=== PATIENT | male | born 1950 | race Caucasian/White ===

== ENCOUNTER 2022-06-13 07:32 | Outpatient (CLI) | payer MEDICARE, BC, SELFPAY ==
[2022-06-13 15:35] LABS: Albumin* 4.3 g/dL (3.3-5.0); Chloride* 102 mmol/L (96-114); Sodium* 135 mmol/L (135-149)
[2022-06-13 15:36] LABS: Potassium* 3.6 mmol/L (3.6-5.1)
[2022-06-13 15:37] LABS: Cholesterol* 157 mg/dL (90-199)
[2022-06-13 15:38] LABS: Alanine Aminotransferase* 35 U/L (4-50); Alkaline Phosphatase* 70 U/L (40-150); Aspartate Amino Transferase* 40 U/L (12-35); Bilirubin Total* 0.7 mg/dL (0.1-1.5); Blood Urea Nitrogen* 12 mg/dL (7-30); Calcium* 9.4 mg/dL (8.4-10.6); Carbon Dioxide* 24 mmol/L (20-32); Creatinine* 0.7 mg/dL (0.5-1.5); Estimated Glomerular Filt Rate 97 ml/min; Glucose* 117 mg/dL (60-115); Total Protein* 6.8 g/dL (6.0-8.3); Triglycerides* 64 mg/dL (40-149)
[2022-06-13 15:39] LABS: HDL Cholesterol* 79 mg/dL (>=40); LDL Cholesterol Calculated 65 mg/dL (<100)
== END 2022-06-13 07:33 | disposition home or self-care (01) ==
PROVIDERS: PCP Internal Medicine; Visit Provider Internal Medicine
DX: Z00.00 Encounter for general adult medical examination without abnormal findings (principal); E78.5 Hyperlipidemia, unspecified; N40.0 Benign prostatic hyperplasia without lower urinary tract symptoms; Z12.5 Encounter for screening for malignant neoplasm of prostate
CPT/HCPCS: 80053; 80061; 84153

== ENCOUNTER 2023-12-22 15:47 | Outpatient (CLI) | payer MEDICARE, BC, SELFPAY ==
--- NOTE | 2023-12-22 15:30 | XR_ITS ---
Patient: [facility] Facility:?[facility] Patient ID:?[id number] Site Patient ID:?[id number]. Site :?1950 Study:?XRay-Extremity Left KNEE 3 VIEWS-12/22/2023 4:12:31 PM Ordering Physician:MALI Final Report: INDICATION: Left knee swelling. TECHNIQUE: Three views of the left knee. FINDINGS: Soft tissue swelling around the left knee. Large knee joint effusion. TKA appears intact. No acute fracture. Multiple loose bodies behind the knee. Dictated by Kuldip Rashid MD @ 12/26/2023 8:24:32 AM Signed by:?Kuldip Rashid MD @12/26/2023 8:24:32 AM (Electronic Signature)
--- NOTE | 2023-12-22 16:00 | US_ITS ---
Patient: LO LOUIS Facility:?[facility] Patient ID:?[id number] Site Patient ID:?[id number]. Site :?1950 Study:?US-Extremity Left LEV-12/22/2023 4:34:51 PM Ordering Physician:DENNIS CASTRO Final Report: INDICATION: Leg pain and swelling. TECHNIQUE: Ultrasound venous duplex lower left extremity. Compression venous exam was performed using alexandre-scale, color Doppler, and spectral Doppler analysis. COMPARISON: None. FINDINGS: Deep veins: Sonographic imaging demonstrates the left common femoral, deep femoral, superficial femoral, popliteal, posterior tibial and the contralateral right common femoral veins to be fully compressible with normal color Doppler blood flow. Superficial veins: Greater saphenous vein is fully compressible. Nonspecific fluid collection anterior to the knee. IMPRESSION: Normal left lower extremity venous ultrasound, no sign of deep venous thrombosis. An anterior fluid collection is adjacent to the knee. Dictated by Chico Abarca MD @ 12/22/2023 5:00:51 PM Signed by:?Chico Abarca MD @12/22/2023 5:00:51 PM (Electronic Signature)
== END 2023-12-22 15:48 | disposition home or self-care (01) ==
PROVIDERS: PCP Orthopaedic Surgery; Visit Provider Family Medicine
DX: M25.562 Pain in left knee (principal); M25.462 Effusion, left knee; I82.402 Acute embolism and thrombosis of unspecified deep veins of left lower extremity
CPT/HCPCS: 73562; 93971

== ENCOUNTER 2024-02-20 06:07 | Day surgery (SDC) | payer MEDICARE, BC, SELFPAY ==
[2024-02-20] VITALS (7 sets, daily range): BP systolic 130–158; BP diastolic 73–85; PULSE 70–82; RESP 16–18; TEMP 36.7; O2SAT 95–98; BMI 25.1
--- OUTSIDE RECORDS SUMMARY | 2024-02-20 06:10 | XMS_ITS ---
Author Name Unknown Organization [facility] Address [address] [place] [address] Care Team Providers Care Highway Construction Inspector Name Role Phone Unavailable Unavailable Unavailable Surgery Details Not on file Complications Check Surgery Details section. Procedure Estimated Blood Loss Check Surgery Details section. Procedure Findings Check Surgery Details section. Procedure Specimens Taken Check Surgery Details section.
--- OUTSIDE RECORDS SUMMARY | 2024-02-20 06:10 | XMS_ITS | Referral Summary ---
Author Name Unknown Organization [facility] Address [address] [place] [address] Care Team Providers Care Welder Apprentice Gas Name Role Phone Brook SmithB.S. Primary Care Provider Source Comments Patient records contain information from all sites at [facility]. For routine questions regarding patient records, call [phone] during business hours, M-F 8:00 AM - 5:00 PM Central Time. Record requests for emergency care only can be directed to [phone] at any time.[facility] Encounters Date Type Department Care Team Description 12/05/2023 Orders Only [facility] Brook Smith M.B.B.S. from Last 3 Months Allergies No known active allergies Medications Medication Sig Dispensed Refills Start Date End Date Status aspirin [address] tablet Take 81 mg by mouth daily. Active tadalafiL (CIALIS) 5 mg tablet Take 5 mg by mouth as needed. 03/26/2018 Active metFORMIN (GLUCOPHAGE) 500 mg tabletIndications:P reDiabetes Take 1 tablet (500 mg total) by mouth 2 (two) times a day with meals. 180 tablet 3 09/14/2023 09/13/2024 Active lisinopril-hydroCHL OROthiazide (PRINZIDE,ZESTORETI C) 10-12.5 mg per tablet Take 1 tablet by mouth daily. Active atorvastatin (LIPITOR) 80 mg tablet Take 1 tablet (80 mg total) by mouth daily. 90 tablet 3 09/14/2023 Active tamsulosin (FLOMAX) 0.4 mg 24 hr capsule Take 2 capsules (0.8 mg total) by mouth daily. 09/14/2023 Active Active Problems Problem Noted Date Diagnosed Date Depression Major Recurrent Mild 08/29/2022 Dependence Nicotine 08/29/2022 Appendectomy Status Post 09/07/2021 Herniorrhaphy Ventral Status Post 09/07/2021 Rotator Cuff Repair Shoulder Status Post 021 Acquired Absence Of Other Sp ecified Parts Of Digestive Tract 09/07/2021 Benign Prostatic Hyperplasia Without Obstruction 06/22/2021 Coronary Stent Status Post 06/22/2021 Loss Hearing Sensorineural Bilateral 06/22/2021 Presence Of Coronary Angiopl asty Implant And Graft Status Post 06/22/2021 Ischemic Heart Chronic Disease 06/30/2020 Atherosclerotic Heart Diseas e Of [place] Coronary Artery Without Angina Pectoris 10/10/2019 Hyperlipidemia 10/10/2019 Atherosclerotic Heart Diseas e Of [place] Coronary Artery Without Angina Pectoris 10/10/2019 Overview: 1 stent placed; negative stress tests since 2004. 1 stent placed; negative stress tests since Other Specific Arthropathies Not Elsewhere Classified Right Shoulder 10/10/2019 Presence Of Artificial Knee Joint Bilateral 06/2020 Overview: 2009 General Medical Examination Adult 02/23/2018 Overview: Colonoscopy 01/2018 diverticulosis, long colon, repeat in 10 years Dysfunction Erectile 03/06/2017 Tear Rotator Cuff Initial Left 12/18/2015 Unspecified Rotator Cuff Tea r Or Rupture Left Shoulder Not Specified As Traumatic 12/18/2015 Resolved Problems Problem Noted Date Diagnosed Date Resolved Date Hypertensive Heart Disease W ithout Heart Failure 06/22/2021 09/14/2023 Immunizations Name Administration Dates Next Due H1N1 All Forms 05/14/2016 HZV (ZOSTAVAX) 01/07/2011 HepA Adult 09/13/2010,09/07/2009 HepB Adult 08/19/2008,07/09/2008 Influenza (IM) Preservative Free 07/15/2008 Influenza TIV (IM) 07/08/2013, 2,07/07/2010,2004,08/08/2003 Influenza Whole 09/30/2004 Influenza high dose QV(65 ye ars or older) (PF) 05/29/2023,06/14/2021,05/31/2020 Influenza, Quadrivalent, Adj uvanted, Preservative Free 06/13/2022 Influenza, Seasonal, Injectable 07/08/20 13,06/28/2012,07/07/2010,2004,08/08/2003 PCV13 03/05/2015 PPSV23 03/20/2014,07/15/2008 RZV (SHINGRIX) 03/19/2018,01/09/2018 SARS-COV-2 (COVID-19) - MODERNA(Discontinued) 11/12/2020 Td Preservative Free (TENIVA C, DECAVAC) 03/04/2015,09/07/2009 Tdap 03/04/2015,07/15/2008 TyVi (inj) 09/07/2009 YF 03/13/2017 influenza high dose (65 year s or older) (PF) 07/02/2019,05/23/2018,07/02/2017,2016,08/02/2016,06/11/2015 influenza vaccine quad (FLUZONE/FLUARIX) (6 months and older)(PF) 07/16/2019,07/17/2018,07/02/2017 Social History Tobacco Use Types Packs/Day Years Used Date Smoking Tobacco: Former Smokeless Tobacco: Never Tobacco Cessation:Counseling Given: Not Answered Alcohol Use Standard Drinks/Week Comments Yes 14 (1 standard drink = 0.6 oz pu re alcohol) PHQ-2 Answer Date Recorded PHQ-2 Score 1 09/14/2023 Nutrition Answer Date Recorded Nutrition: EVOO Fat Source Unknown 11/25 Nutrition: Servings of Fruits/Vegetables per Day Not on file 11/25/2020 Dental Answer Date Recorded Dental: Regular Dentist Unknown 11/25/19 21 Sex and Gender Information Value Date Recorded Sex Assigned at Not on file Gender Identity Not on file Sexual Orientation Not on file Last Filed Vital Signs Vital Sign Reading Time Taken Comments Blood Pressure 142/85 09/14/2023 7:04 AM FURNITURE BUILDER Pulse 65 09/14/2023 7:04 AM FURNITURE BUILDER Temperature 36.3 ??C (97.4 ??F) 09/14/2023 7:04 AM CS T Respiratory Rate 16 09/14/2023 7:04 AM FURNITURE BUILDER Oxygen Saturation - - Inhaled Oxygen Concentration - - Weight 78.7 kg (173 lb 8 oz) 09/14/2023 7:04 AM FURNITURE BUILDER Height 175.6 cm (5' 9.13) 09/14/2023 7:04 AM CS T Body Mass Index 25.52 09/14/2023 7:04 AM FURNITURE BUILDER Plan of Treatment Not on file Procedures Procedure Name Priority Date/Time Associated Diagnosis Comments LIPID PANEL, S Routine 09/12/2023 8:06 AM FURNITURE BUILDER Hyperlipidemia BASIC METABOLIC PANEL, S/P Routine 09/12/2023 8:06 AM FURNITURE BUILDER Monitoring For Therapeutic Drug Therapy from Last 3 Months or Most Recently Relevant to Health Maintenance Results * Lipid Panel (09/12/2023 8:06 AM FURNITURE BUILDER) Triglycerides 74 mg/dL 09/12/2023 8:29 AM FURNITURE BUILDER RDWG Comment: ----REFERENCE VALUE---- Normal: <150 mg/dL Borderline High: 150-199 mg/dL High: 200-499 mg/dL Very High: > or =500 mg/dL Cholesterol, Total 153 mg/dL 2022 8:29 AM FURNITURE BUILDER RDWG Comment: ----REFERENCE VALUE---- Desirable: < 200 mg/dL Borderline High: 200 - 239 mg/dL High: > or = 240 mg/dL Cholesterol, LDL, Calculated 61 mg/dL 09/12/2023 8:29 AM FURNITURE BUILDER RDWG Comment: ----REFERENCE VALUE---- Desirable: <100 mg/dL Above Desirable: 100-129 mg/dL Borderline High: 130-159 mg/dL High: 160-189 mg/dL Very High: >=190 mg/dL ----ADDITIONAL INFORMATION---- LDL cholesterol calculated using the Winn/NIH equation. Cholesterol, HDL 78 >=40 mg/dL 09/12/20 8:29 AM FURNITURE BUILDER RDWG Cholesterol, Non-HDL, Calculated 75 mg/dL 09/12/2023 8:29 AM FURNITURE BUILDER RDWG Comment: ----REFERENCE VALUE---- Desirable: <130 mg/dL Above Desirable: 130-159 mg/dL Borderline High: 160-189 mg/dL High: 190-219 mg/dL Very High: > or =220 mg/dL Fasting (8 HR or more) Yes 09/12/2023 8:06 AM FURNITURE BUILDER RDWG Blood (Blood, Venous) 09/12/2023 8:06 AM FURNITURE BUILDER 09/12/2023 8:06 AM FURNITURE BUILDER Brook Andrews LAB BLOOD ADD- ON [facility] [address] [place] [address], [facility] R[facility] [place] [address] [place] [address] * Basic Metabolic Panel (09/12/2023 8:06 AM FURNITURE BUILDER) Potassium, P 4.2 3.6 - 5.2 mmol/L 09/12/2023 8:29 AM FURNITURE BUILDER RDWG Sodium, P 140 135 - 145 mmol/L 09/12/2023 8:29 AM FURNITURE BUILDER RDWG Chloride, P 102 98 - 107 mmol/L 09/12/2023 8:29 AM FURNITURE BUILDER RDWG Bicarbonate, P 26 22 - 29 mmol/L 09/12/2023 8:29 AM FURNITURE BUILDER RDWG Anion Gap, P 12 7 - 15 09/12/2023 8:29 AM FURNITURE BUILDER RDWG BUN (Blood Urea Nitrogen), P 14 8 - 24 mg/dL 09/12/2023 8:29 AM FURNITURE BUILDER RDWG Creatinine 0.85 0.74 - 1.35 mg/dL 09/12/2023 8:29 AM FURNITURE BUILDER RDWG Estimated GFR (eGFR) >90 >=60 mL/min/BSA 09/12/2023 8:29 AM FURNITURE BUILDER RDWG Comment: Estimated GFR calculated using the 2020 CKD_EPI creatinine equation. Calcium, Total, P 9.6 8.8 - 10.2 mg/dL 09/12/2023 8:29 AM FURNITURE BUILDER RDWG Glucose, P 98 70 - 140 mg/dL 09/12/2023 8:29 AM FURNITURE BUILDER RDWG Blood (Blood, Venous) 09/12/2023 8:06 AM FURNITURE BUILDER 09/12/2023 8:06 AM FURNITURE BUILDER Brook GipsonSDre LAB BLOOD ADD- ON [facility] [address] [place] [id number], [facility] RDWG [facility] [place] [address] [place] [phone] from Last 3 Months or Most Recently Relevant to Health Maintenance Care Teams Welder Apprentice Gas Relationship Specialty Start Date End Date Brook Smith M.B.B.S. [address] [place] [phone] PCP - General Internal Medicine 09/03/21
--- OUTSIDE RECORDS SUMMARY | 2024-02-20 06:10 | XMS_ITS | Referral Summary ---
Author Name Unknown Organization [facility] Address [address] [place] [id number] Care Team Providers Care Lieutenant Ballistics Name Role Phone Bebeto Delgado MD Primary Care Provider [phone] Allergies No known active allergies Medications Medication Sig Dispensed Refills Start Date End Date Status levofloxacin (LEVAQUIN) 500 MG tablet Take 500 mg by mouth daily 10/01/2019 Active aspirin 81 MG EC tablet Take 81 mg by mouth daily 03/20/2014 Active lisinopril-hydrochloro thiazide (PRINZIDE/ZESTORETIC) 10-12.5 MG tablet Take 1 tablet by mouth daily 03/26/2018 Active atorvastatin (LIPITOR) 80 MG tablet Take 80 mg by mouth daily 07/16/2019 Active tamsulosin (FLOMAX) 0.4 MG capsule Take 0.4 mg by mouth daily 07/16/2019 Active tadalafil (CIALIS) 5 MG tablet Take 5 mg by mouth as needed 03/26/2018 Active Active Problems Problem Noted Date Diagnosed Date Coronary atherosclerosis 10/10/2019 HTN (hypertension) 10/10/2019 Hyperlipidemia 10/10/2019 Myocardial infarction 10/10/2019 Overview: 2004. 1 stent placed; negative stress tests since Rotator cuff arthropathy of both shoulders 10/10 History of total bilateral knee replacement 06/2020 Overview: 2008 Male erectile dysfunction, unspecified 7 Immunizations Name Administration Dates Next Due Hepatitis A (ADULT 19+) 09/13/2010,09/07/2009 Hepatitis B, Adult 08/19/2008,07/09/2008 Influenza (H1N1) 05/14/2016 Influenza (High Dose) 3 kit nt vaccine 07/02/2019,05/23/2018,07/02/2017,2016,08/02/2016,06/11/2015 Influenza (IIV3) PF 07/08/2013, 2,07/07/2010,2004,08/08/2003 Influenza, Whole Virus 09/30/2004 Influenza, seasonal, injectable, PF 07/15/2008 Pneumo Conj 13-V (2010&after) 03/05/2015 Pneumococcal 23 valent 03/20/2014,07/15/2008 TD,PF 7+ (Tenivac) 09/07/2009 TDAP Vaccine (Boostrix) 03/04/2015,07/15/2008 Typhoid IM 09/07/2009 Yellow Fever 03/13/2017,03/13/2017 Zoster recombinant adjuvante d (SHINGRIX) 03/19/2018,01/09/2018 Zoster vaccine, live 01/07/2011 Social History Tobacco Use Types Packs/Day Years Used Date Smoking Tobacco: Former Smokeless Tobacco: Never Alcohol Use Standard Drinks/Week Comments Yes 0 (1 standard drink = 0.6 oz pur e alcohol) occasionally PHQ-2 Answer Date Recorded PHQ-2 Score 2 10/09/2019 Sex and Gender Information Value Date Recorded Sex Assigned at Not on file Gender Identity Not on file Sexual Orientation Not on file Last Filed Vital Signs Vital Sign Reading Time Taken Comments Blood Pressure 167/99 10/09/2019 4:43 PM SPINNER OPEN END Pulse 76 10/09/2019 4:39 PM SPINNER OPEN END Temperature 36.7 ??C (98.1 ??F) 10/09/2019 4:39 PM CS T Respiratory Rate 16 10/09/2019 4:39 PM SPINNER OPEN END Oxygen Saturation 99% 10/09/2019 4:39 PM SPINNER OPEN END Inhaled Oxygen Concentration - - Weight 82.3 kg (181 lb 6.4 oz) 10/09/2019 4:39 P M SPINNER OPEN END Height 176 cm (5' 9.29) 10/09/2019 4:39 PM SPINNER OPEN END Body Mass Index 26.56 10/09/2019 4:39 PM SPINNER OPEN END Plan of Treatment Not on file Care Teams Lieutenant Ballistics Relationship Specialty Start Date End Date Bebeto Delgado MD [address] [place], [place] [phone] PCP - General Family Practice 09/30/19
--- OUTSIDE RECORDS SUMMARY | 2024-02-20 06:10 | XMS_ITS | Clinical Summary ---
Author Name Unknown Organization [facility] Address [place], [place] [address] Care Team Providers Care Customer Orders Clerk Name Role Phone Melissa Causey MD Primary Care Provider [phone] Allergies No known active allergies Medications Medication Sig Dispensed Refills Start Date End Date Status aspirin enteric coated 81 mg tablet Take 1 tablet by mouth once daily with a meal. 0 03/20/2014 Active tadalafiL (Cialis) 5 mg tabletIndications:Ere ctile dysfunction, unspecified erectile dysfunction type Take 1 Tablet (5 mg) by mouth once daily. 30 Tablet 3 08/29/2022 Active metFORMIN (GLUCOPHAGE) 850 mg tabletIndications:Pre diabetes Take 1 Tablet (850 mg) by mouth two times daily with meals. 180 Tablet 3 02/24/2023 Active atorvastatin (LIPITOR) 80 mg tabletIndications:Mix ed hyperlipidemia TAKE 1 TABLET (80 MG) BY MOUTH ONCE DAILY. PUT ON FILE - 90 Tablet 09/06/2023 Active tamsulosin (FLOMAX) 0.4 mg capsuleIndications:BP H without urinary obstruction TAKE 2 CAPSULES (0.8 MG) BY MOUTH ONCE DAILY AFTER A MEAL. 180 Capsule 09/06/2023 Active buPROPion (WELLBUTRIN XL) 300 mg Extended-Release tabletIndications:Oth er tobacco product nicotine dependence, uncomplicated TAKE ONE TABLET BY MOUTH EVERY DAY 30 Tablet 09/07/2023 Active lisinopril-hydrochlor othiazide (10-12.5 mg) tablet (PRINZIDE; ZESTORETIC)Indication s:HTN (hypertension) TAKE 1 TABLET BY MOUTH ONCE DAILY. 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 09/07/2021 Sensorineural hearing loss (SNHL) of both ears 0 06/22/2021 Presence of coronary angioplasty implant and gra ft 06/22/2021 Benign prostatic hyperplasia without urinary obs truction 06/22/2021 Rotator cuff arthropathy of both shoulders 10/10 History of total bilateral knee replacement 06/2020 Overview: 2008 Routine adult health maintenance 02/23/2018 Overview: Colonoscopy 01/2018 diverticulosis, long colon, repeat in 10 years Male erectile dysfunction, unspecified 7 Tear of left rotator cuff 12/18/2015 HTN (hypertension) Hyperlipidemia Coronary artery disease Myocardial infarction Overview: 1 stent placed; negative stress tests since Encounters Date Type Department Care Team Description 01/25/2024 Refill [facility] [address] [place] [address] Melissa Causey MD Refill Request (Lisinopril-hydrochlorot hiazide 10 Mg-12.5 Mg) 12/26/2023 Refill [facility] [address] [place] [address] Melissa Causey MD Refill Request (Lisinopril-hydrochlorot hiazide 10 Mg-12.5 Mg) from Last 3 Months Immunizations Name Administration Dates Next Due COVID-19 vaccine (Moderna 100mcg/0.5mL) TRENT LEVIN 11/12/2020 Hepatitis A (Adult) 09/13/2010,09/07/2009 Hepatitis B (Adult) 08/19/2008,07/09/2008 Influenza A (H1N1), Inactivated 05/14/2016 Influenza, High-dose Inactivated 019,05/23/2018,07/02/2017,2016,08/02/2016,06/12/2015 Influenza, High-dose Quadriv alent Inactivated 06/14/2021,05/31/2020 Influenza, IIV3 (Age 6-35 mos) 07/15/2008 Influenza, IIV3 (Age >=3 years) 07/08/20 13,06/28/2012,07/07/2010,2004,08/08/2003 Influenza, IIV4 07/16/2019,07/17/2018,07/02/2017 Influenza, Inactivated AIIV4 (Age 65+ Years) Preserv Free 06/13/2022 Influenza, Whole Virus 09/30/2004 Pneumococcal Poly,23-Valent (Pneumovax) 03/20/2014,07/15/2008 Pneumococcal conj 13-Valent (Prevnar 13) 03/05/2015 Td, Preservative Free (age > = 7 Years) 03/04/2015,09/07/2009 Tdap 03/04/2015,07/15/2008 Typhoid (injectable) 09/07/2009 Yellow Fever 03/13/2017 Zoster (Shingrix-RZV, recombinant) 03/19/2018, Zoster (Zostavax-ZVL, live) 01/07/2011 Family History Medical History Relation Name Comments Heart Disease Father Hyperlipidemia Father Stroke Mother at 86 Cancer-colon No Family History Cancer-prostate No Family History Relation Name Status Comments Father Mother Social History Tobacco Use Types Packs/Day Years Used Date Smoking Tobacco: Former Cigarettes 1 30 0 03/20/1970 - 03/20/2000 Smokeless Tobacco: Never Tobacco Cessation:Counseling Given: Yes Alcohol Use Standard Drinks/Week Comments Yes 0 (1 standard drink = 0.6 oz pur e alcohol) 1-2 drinks per day PHQ-2 Answer Date Recorded PHQ-2 TOTAL SCORE 3 08/29/2022 Social Connections Answer Date Recorded Frequency of Communication with Friends and Fami ly 0 06/26/2023 Financial Resource Strain Answer Date R ecorded Difficulty of Paying Living Expenses 3 06/26/2023 Difficulty of Paying Living Expenses Not on file 06/26/2023 Food Insecurity Answer Date Recorded Worried About Running Out of Food in the Last Ye ar 1 06/26/2023 Transportation Needs Answer Date Record ed Lack of Transportation (Medical) 1 06/26/2023 Housing Stability Answer Date Recorded Unable to Pay for Housing in the Last Year 1 06/26/2023 Sex and Gender Information Value Date Recorded Sex Assigned at Not on file Gender Identity Not on file Sexual Orientation Not on file Obstetrics History Last Filed Vital Signs Vital Sign Reading Time Taken Comments Blood Pressure 137/81 08/29/2022 8:59 AM STUCCO MASON Pulse 57 08/29/2022 8:59 AM STUCCO MASON Temperature 36.6 ??C (97.9 ??F) 05/08/2019 9:08 AM CD T Respiratory Rate 18 02/02/2016 9:04 AM CDT Oxygen Saturation 97% 08/29/2022 8:59 AM STUCCO MASON Inhaled Oxygen Concentration - - Weight 80.3 kg (177 lb) 08/29/2022 8:59 AM STUCCO MASON Height 175.5 cm (5' 9.09) 08/29/2022 8:59 AM CS T Body Mass Index 26.07 08/29/2022 8:59 AM STUCCO MASON Plan of Treatment Health Maintenance Due Date Last Done Comments COVID-19 vaccine series ( season) 2023 02/20/2023, 06/13/2022, 01/11/2022, Additional history exists BMI (ht and wt on same day) for age 18+ 08/29/2023 08/29/2022, 03/26/2018, 01/22/2018, Additional history exists Depression screening for age 12+ 08/29/2023 08/29/2022, 03/26/2018, 03/26/2018, Additional history exists Medicare Wellness for age 65+ 08/30/2023, 03/26/2018, 03/06/2017, Additional history exists Influenza for age 65+ 06/02/2024 06/13/2022 , 06/14/2021, 05/31/2020, Additional history exists Tetanus booster 03/04/2025 03/04/2015, 11/2014, 09/07/2009, Additional history exists Colonoscopy through age 75 02/24/202802/23, 02/23/2018, 02/23/2018 Lipids for age 45-75 06/23/2028 06/23/2023, 03/15/2018, 03/02/2017, Additional history exists Tdap Completed 03/04/2015, 07/15/2008 Pneumococcal series for age 65+ Completed 03/05/2015, 03/20/2014, 07/15/2008 Zoster (shingles) series for age 50+ Completed 03/19/2018, 01/09/2018, 01/07/2011 Hepatitis C screening for ag e 18-79 Completed 03/27/2018 Medical Devices Implanted Type Area Corporate Travel Consultant Device Identifier Shelf Expiration Date Model / Serial / Lot Lens Iol 20.5 Tecnis - [id number] Implanted:Qty: 1 on 02/02/2016 by Michael Villarreal MD at [facility] Right: Eye [employer] 11/10/2020 [id number] / [id number] / Procedures Procedure Name Priority Date/Time Associated Diagnosis Comments LIPID PANEL W REFLEX MEASURED LDL Routine 06/23/2023 7:03 AM CDT Hyperlipidemia, unspecified hyperlipidemia type ANTI HCV Routine 03/27/2018 12:46 PM CDT Need for hepatitis C screening test COLONOSCOPY 02/23/2018 7:55 AM CDT from Last 3 Months or Most Recently Relevant to Health Maintenance Results * LIPID PANEL W REFLEX MEASURED LDL (06/23/2023 7:03 AM CDT) CHOLESTEROL,TOTAL 149 100 - 199 mg/dL 06/23/2023 1:54 PM CDT [facility] [employer] LABORATORY-[facility] TRAL LABORATORY Comment: Cholesterol, Total Reference Ranges Desirable <200 mg/dL Borderline 200-239 mg/dL High >=240 mg/dL TRIGLYCERIDES 56 <150 mg/dL 06/23/2023 1:54 PM CDT [facility] [employer] LABORATORY-[facility] HDL CHOLESTEROL 73 >40 mg/dL 1:54 PM CDT [facility] [employer]-[facility] TRAL LAB[facility] NON-HDL CHOLESTEROL 76 <145 mg/dl 06/23/2023 1:54 PM CDT [facility] LAB[facility] TRAL LABORATORY CHOL/HDL RATIO 2.04 <4.50 06/23/2023 1:54 PM CDT [facility] [employer] LABORATORY-[facility] TRAL LABORATORY LDL CHOLESTEROL 65 <=130 mg/dL 06/23/2023 1:54 PM CDT [facility] TRAL LABORATORY VLDL CHOLESTEROL 11 <=30 mg/dL 06/23/2023 1:54 PM CDT [facility] TRA LABORAT[facility] PROVIDER ORDERED STATUS RANDOM 06/23/2023 1:54 PM CDT [facility] Blood BLOOD SPECIMEN / Unknown Venipuncture / Unknown 06/23/2023 7:03 AM CDT 06/23/2023 7:04 AM CDT Melissa Causey MD CHEMISTRY [facility] [address] [place] [address], [place] * ANTI HCV [00886.2] (03/27/2018 12:46 PM CDT) HEPATITIS C ANTIBODY Non-React maikel Non-React maikel 03/27/2018 5:21 PM CDT [facility] Comment:Antibodies to HCV no t detected; does not exclude the possibility of exposure to HCV. Blood BLOOD SPECIMEN / Unknown Venipuncture / Unknown 03/27/2018 12:46 PM CDT 03/27/2018 12:46 PM CDT Nate Sosa MD SEND OUTS Performing Organization Address City/[facility]/ZIP Co de Phone Number [facility] [address] [place] [address], [place] * COLONOSCOPY (02/23/2018 7:55 AM CDT) 02/23/2018 7:55 AM CDT Narrative Transcriptions Malik Alegria MD - 02/23/2018 9:21 AM CDT Patient Name: Kunal Dubois Procedure Date: 02/23/2018 Gender: Male Date of : 1950 Admit Type: Outpatient Procedure: Colonoscopy Proceduralist: Malik Alegria MD , Lauren Castro (Nurse) Referring MD: Nate Sosa Indications/Pre-Op Diagnosis: Screening for colorectal malignant neoplasm, Last colonoscopy: January 2008 Medications: Fentanyl 150 micrograms IV, Midazolam 2 mgIV, The level of sedation administered wasmoderate Procedure Description: The patient had risks, benefits and alternatives explained to andgave informed consent. The patient had a stable cardiopulmonary status and judged an adequate candidate for conscious sedation. The [id number]-[id number] was passed through the anus and advanced tothe cecum, identified by appendiceal orifice and ileocecal valve. The colonoscopy was performed without difficulty. The patient toleratedthe procedure well. The quality of the bowel preparation was good. The ileocecal valve, appendiceal orifice, and rectum were photographed. Complications: No immediate complications. Estimated Blood Loss & Specimen: Estimated blood loss: none. Specimen collected - None Findings: The perianal and digital rectal examinations were normal. The colon (entire examined portion) was moderately redundant. Multiple small and large-mouthed diverticula were found in thesigmoid colon and descending colon. The exam was otherwise without abnormality on direct and retroflexion views. Impressions/Post-Op Diagnosis: - Redundant colon. - Diverticulosis in the sigmoid colon and in the descending colon. - The examination was otherwise normal on direct and retroflexionviews. - No specimens collected. Recommendation: - Patient has a contact number available for emergencies. The signsand symptoms of potential delayed complications were discussed with the patient. Return to normal activities tomorrow. Written discharge instructions were provided to the patient. - Resume previous diet. - Continue present medications. - Repeat colonoscopy in 10 years for screening purposes. Moderate Sedation: Moderate (conscious) sedation was administered by the endoscopy nurse and supervised by the endoscopist. The following parameters were monitored: oxygen saturation, heart rate, respiratory rate, blood pressure, adequacy of pulmonary ventilation and reponse to care. [facility] and nursing notes for moderate sedation details. Total physician intraservice time was 39 minutes. Malik Alegria MD 02/23/2018 9:21:29 AM This report has been signed electronically. Note Initiated On: 02/23/2018 7:55 AM Procedure Code(s): --- Professional --- 41615, Colonoscopy, flexible; diagnostic, including collection of specimen(s) bybrushing or washing, when performed (separateprocedure) Diagnosis Code(s): --- Professional --- Z12.11, Encounter for screening formalignant neoplasm of colon K57.30, Diverticulosis of large intestine without perforation or abscess withoutbleeding Q43.8, Other specified congenitalmalformations of intestine CPT copyright 2017 [employer]. All rights reserved. The codes documented in this report are preliminary and upon trencher driver reviewmay be revised to meet current compliance requirements. Scope In: 8:38:50 AM Scope Withdrawal Time 0 hours 8 minutes 12 seconds Scope Out: 9:17:00 AM Malik Alegria MD PROCEDURE ORD from Last 3 Months or Most Recently Relevant to Health Maintenance Advance Directives * Full Code (Latest Code Status on File) Date Activated Date Inactivated Comments 02/02/2016 6:46 AM 02/02/2016 12:26 PM * Full Code Date Activated Date Inactivated Comments 07/30/2015 6:30 AM 07/30/2015 10:32 AM Care Teams Customer Orders Clerk Relationship Specialty Start Date End Date Melissa Causey MD [address] [place] [address] PCP - General Family Practice 08/29/22
--- OUTSIDE RECORDS SUMMARY | 2024-02-20 06:10 | XMS_ITS | Clinical Summary ---
Author Name Unknown Organization [facility] Address [address] [place] [address] Care Team Providers Care Boring Machine Operator Production Name Role Phone Brook SmithSDre Primary Care Provider Source Comments Patient records contain information from all sites at [facility]. For routine questions regarding patient records, call [phone] during business hours, M-F 8:00 AM - 5:00 PM Central Time. Record requests for emergency care only can be directed to [phone] at any time.[facility] Allergies No known active allergies Medications Medication [...] Disease 06/30/2020 Atherosclerotic Heart Diseas e Of [place] Coronary Artery Without Angina Pectoris 10/10/2019 Hyperlipidemia 10/10/2019 Atherosclerotic Heart Diseas e Of [place] Coronary Artery Without Angina Pectoris 10/10/2019 Overview: [...] Disease W ithout Heart Failure 06/22/2021 09/14/2023 Encounters Date Type Department Care Team Description 12/05/2023 Orders Only [facility] PCP TH MNT Brook Smith M.B.B.S. from Last 3 Months Immunizations Name Administration Dates Next Due H1N1 [...] Comments Blood Pressure 142/85 09/14/2023 7:04 AM UX INTERACTION DESIGNER Pulse 65 09/14/2023 7:04 AM UX INTERACTION DESIGNER Temperature 36.3 ??C (97.4 ??F) 09/14/2023 7:04 AM CS T Respiratory Rate 16 09/14/2023 7:04 AM UX INTERACTION DESIGNER Oxygen Saturation - - Inhaled Oxygen Concentration - - Weight 78.7 kg (173 lb 8 oz) 09/14/2023 7:04 AM UX INTERACTION DESIGNER Height 175.6 cm (5' 9.13) 09/14/2023 7:04 AM CS T Body Mass Index 25.52 09/14/2023 7:04 AM UX INTERACTION DESIGNER Plan of Treatment Health Maintenance Due Date Last Done Comments CT Colonography 1950 Cologuard 1950 Depression Monitoring (PHQ-9) 1950 FIT 1950 Hepatitis C Screening 1950 Tobacco Cessation counseling 1950 Visit: Medicare Annual Wellness 1950 Hepatitis B Vaccines (3 of 3 - 19+ 3-dose series) 01/07/2009 08/19/2008, 07/09/2008 Fall Risk Screen (Annual) 10/02/2023 Office Visit for Blood Press ure Check / Re-check 12/14/2023 09/14/2023 COVID-19 Vaccine (2022-2 4 season) 2024 12/01/2023, 02/20/2023, 06/13/2022, Additional history exists Creatinine Level (Kidney Fun ction Test) 09/12/2024 09/12/2023, 06/23/2023, 09/07/2021, Additional history exists Fasting Glucose for Diabetes Screening 09/12/2024 09/12/2023, 06/23/2023, 09/07/2021, Additional history exists Potassium Level 09/12/2024 09/12/2023, 06/03, 09/07/2021, Additional history exists Sodium Level 09/12/2024 09/12/2023, 06/03, 09/07/2021, Additional history exists Visit: Annual, age 65+ (or Medicare and <65) 09/14/2024 09/14/2023 DTaP,Tdap,and Td Vaccines (5 - Td or Tdap) 03/04/2025 03/04/2015, 03/04/2015, 09/07/2009, Additional history exists Colonoscopy 03/06/2028 03/06/2018 (Perf ormed elsewhere) Colorectal Cancer Screening 03/06/2028 Lipid (Cholesterol) Screening 09/12/2028, 06/23/2023, 09/07/2021, Additional history exists Hepatitis A Vaccines Completed 09/13/2010, 09/07/20 09 Pneumococcal vaccine (65+ years) Completed 03/05/2015, 03/20/2014, 07/15/2008 Zoster Vaccines Completed 03/19/2018, 12/31, 01/07/2011 Abdominal Aortic Aneurysm (A AA) Screen Discontinued 03/16/2021 (Performed elsewhere) Influenza Vaccine Completed 05/29/2023, , 06/14/2021, Additional history exists Procedures Procedure Name Priority Date/Time Associated Diagnosis Comments LIPID PANEL, S Routine 09/12/2023 8:06 AM UX INTERACTION DESIGNER Hyperlipidemia BASIC METABOLIC PANEL, S/P Routine 09/12/2023 8:06 AM UX INTERACTION DESIGNER Monitoring For Therapeutic Drug Therapy from Last 3 Months or Most Recently Relevant to Health Maintenance Results * Lipid Panel (09/12/2023 8:06 AM UX INTERACTION DESIGNER) Triglycerides 74 mg/dL 09/12/2023 8:29 AM UX INTERACTION DESIGNER [facility] Comment: ----REFERENCE VALUE---- Normal: <150 mg/dL Borderline High: 150-199 mg/dL High: 200-499 mg/dL Very High: > or =500 mg/dL Cholesterol, Total 153 mg/dL 2022 8:29 AM UX INTERACTION DESIGNER [facility] Comment: ----REFERENCE VALUE---- Desirable: < 200 mg/dL Borderline High: 200 - 239 mg/dL High: > or = 240 mg/dL Cholesterol, LDL, Calculated 61 mg/dL 09/12/2023 8:29 AM UX INTERACTION DESIGNER [facility] Comment: ----REFERENCE VALUE---- Desirable: <100 mg/dL Above Desirable: 100-129 mg/dL Borderline High: 130-159 mg/dL High: 160-189 mg/dL Very High: >=190 mg/dL ----ADDITIONAL INFORMATION---- LDL cholesterol calculated using the Winn/NIH equation. Cholesterol, HDL 78 >=40 mg/dL 09/12/20 8:29 AM UX INTERACTION DESIGNER [facility] Cholesterol, Non-HDL, Calculated 75 mg/dL 09/12/2023 8:29 AM UX INTERACTION DESIGNER [facility] Comment: ----REFERENCE VALUE---- Desirable: <130 mg/dL Above Desirable: 130-159 mg/dL Borderline High: 160-189 mg/dL High: 190-219 mg/dL Very High: > or =220 mg/dL Fasting (8 HR or more) Yes 09/12/2023 8:06 AM UX INTERACTION DESIGNER [facility] Blood (Blood, Venous) 09/12/2023 8:06 AM UX INTERACTION DESIGNER 09/12/2023 8:06 AM UX INTERACTION DESIGNER Brook Andrews LAB BLOOD ADD- ON [facility] [address] [place] [address], [facility] [place] [address] [place] [address] * Basic Metabolic Panel (09/12/2023 8:06 AM UX INTERACTION DESIGNER) Potassium, P 4.2 3.6 - 5.2 mmol/L 09/12/2023 8:29 AM UX INTERACTION DESIGNER [facility] Sodium, P 140 135 - 145 mmol/L 09/12/2023 8:29 AM UX INTERACTION DESIGNER [facility] Chloride, P 102 98 - 107 mmol/L 09/12/2023 8:29 AM UX INTERACTION DESIGNER [facility] Bicarbonate, P 26 22 - 29 mmol/L 09/12/2023 8:29 AM UX INTERACTION DESIGNER [facility] Anion Gap, P 12 7 - 15 09/12/2023 8:29 AM UX INTERACTION DESIGNER [facility] BUN (Blood Urea Nitrogen), P 14 8 - 24 mg/dL 09/12/2023 8:29 AM UX INTERACTION DESIGNER [facility] Creatinine 0.85 0.74 - 1.35 mg/dL 09/12/2023 8:29 AM UX INTERACTION DESIGNER [facility] Estimated GFR (eGFR) >90 >=60 mL/min/BSA 09/12/2023 8:29 AM UX INTERACTION DESIGNER [facility] Comment: Estimated GFR calculated using the 2020 CKD_EPI creatinine equation. Calcium, Total, P 9.6 8.8 - 10.2 mg/dL 09/12/2023 8:29 AM UX INTERACTION DESIGNER [facility] Glucose, P 98 70 - 140 mg/dL 09/12/2023 8:29 AM UX INTERACTION DESIGNER [facility] Blood (Blood, Venous) 09/12/2023 8:06 AM UX INTERACTION DESIGNER 09/12/2023 8:06 AM UX INTERACTION DESIGNER Brook GipsonS. LAB BLOOD ADD- ON [facility] [address] [id number], [facility] [place] [address] [id number] from Last 3 Months or Most Recently Relevant to Health Maintenance Care Teams Boring Machine Operator Production Relationship Specialty Start Date End Date Brook Smith M.B.B.S. [address] [facility] [place] [id number] PCP - General Internal Medicine 09/03/21
--- OUTSIDE RECORDS SUMMARY | 2024-02-20 06:10 | XMS_ITS | Clinical Summary ---
Author Name Unknown Organization [facility] Address [address] [place] [address] Care Team Providers Care Shank Burnisher Name Role Phone Bebeto Delgado MD Primary Care Provider [phone] Allergies No known active allergies Medications Medication [...] d (SHINGRIX) 03/19/2018,01/09/2018 Zoster vaccine, live 01/07/2011 Family History Medical History Relation Comments Hypertension Father Dementia Mother Heart Disease Paternal Grandfather Cancer No family hx of Coronary Artery Disease No family hx of Diabetes No family hx of Relation Status Comments Father Mother Paternal Grandfather Paternal Grandmother Social History Tobacco Use Types Packs/Day Years [...] Comments Blood Pressure 167/99 10/09/2019 4:43 PM SENIOR INFORMATION SECURITY ARCHITECT Pulse 76 10/09/2019 4:39 PM SENIOR INFORMATION SECURITY ARCHITECT Temperature 36.7 ??C (98.1 ??F) 10/09/2019 4:39 PM CS T Respiratory Rate 16 10/09/2019 4:39 PM SENIOR INFORMATION SECURITY ARCHITECT Oxygen Saturation 99% 10/09/2019 4:39 PM SENIOR INFORMATION SECURITY ARCHITECT Inhaled Oxygen Concentration - - Weight 82.3 kg (181 lb 6.4 oz) 10/09/2019 4:39 P M SENIOR INFORMATION SECURITY ARCHITECT Height 176 cm (5' 9.29) 10/09/2019 4:39 PM SENIOR INFORMATION SECURITY ARCHITECT Body Mass Index 26.56 10/09/2019 4:39 PM SENIOR INFORMATION SECURITY ARCHITECT Plan of Treatment Not on file Care Teams Shank Burnisher Relationship Specialty Start Date End Date Bebeto Delgado MD [address] [facility] [address] [place] [address] PCP - General Family Practice 09/30/19
--- OUTSIDE RECORDS SUMMARY | 2024-02-20 06:10 | XMS_ITS | Encounter Summary ---
Author Name Unknown Organization [facility] Address [address] [place] [address] Care Team Providers Care House Visitor Name Role Phone Brook SmithB.S. Primary Care Provider Reason for Referral * Outpatient (Routine) - Authorized Specialty Diagnoses / Procedures Referred By Mariya savage Referred To Contact Brook Smith M.B.B.S. [address] [place] [phone] [facility] Region Referral ID Status Reason Start Date Expiration Date V isits Requested Visits Authorized [id number] Authorized 12/05/2023 06/05/2025 1 1 Scheduling Instructions Nurse AWV Do not schedule prior to due date to ensure insurance coverage Visit: Medicare Annual Wellness Never done. IER DRIVER * Outpatient (Routine) - Authorized Specialty Diagnoses / Procedures Referred By Mariya savage Referred To Contact [facility] Internal Medicine Brook Smith M.B.B.S. [address] [place] [phone] [facility] Region Referral ID Status Reason Start Date Expiration Date V isits Requested Visits Authorized [id number] Authorized 12/05/2023 06/05/2025 1 1 Scheduling Instructions Medicare annual provider visit/HCC gaps Do not schedule prior to due date to ensure insurance coverage Visit: Medicare Annual Wellness Never done. IER DRIVER Encounter Details Date Type Department Care Team (Late st Contact Info) Description 12/05/[address] [facility] [address] [place] [phone] Social History Tobacco Use Types Packs/Day Years Used Date Smoking Tobacco: Former Smokeless Tobacco: Never Alcohol Use Standard Drinks/Week Comments Yes 14 (1 standard drink = 0.6 oz pu re alcohol) PHQ-2 Answer Date Recorded PHQ-2 Score 1 09/14/2023 Nutrition Answer Date Recorded Nutrition: EVOO Fat Source Unknown 11/25 Nutrition: Servings of Fruits/Vegetables per Day Not on file 11/25/2020 Dental Answer Date Recorded Dental: Regular Dentist Unknown 11/25/19 Sex and Gender Information Value Date Recorded Sex Assigned at Not on file Gender Identity Not on file Sexual Orientation Not on file documented as of this encounter Plan of Treatment Scheduled Referrals Name Type Priority Associated Diagnoses Orde r Schedule Community Internal Medicine office visit (clinic) Outpatient Referral Routine Expected: 01/02/2024, Expires: 06/02/2024 Primary Care nurse visit (clinic) - [facility]; Medicare Annual Wellness Outpatient Referral Routine Expected: 01/02/2024, Expires: 06/02/2024 documented as of this encounter Visit Diagnoses Not on filedocumented in this encounter Care Teams House Visitor Relationship Specialty Start Date End Date Brook Smith M.B.B.S. [address] [place] [phone] PCP - General Internal Medicine 09/03/21 documented as of this encounter
[2024-02-20] MEDS: BACITRACIN OINTMENT BULK TUBE 1 APPLIC TOPICAL (07:35)
--- NOTE | 2024-02-20 07:50 | P.ORPRC_ITS ---
Procedure Note Date of procedure: 02/20/24 Procedure: Preop diagnosis: Left hand middle finger stenosing tenosynovitis Postop diagnosis: Left hand middle finger stenosing tenosynovitis Procedure: Left hand middle finger A1 renzo release Anesthesia: Local Surgeon: Monroe Blanton MD assistant laboratory director: Becki Longoria PA-C EBL: 2 mL Complications: None Specimens: None Drains: None Preoperative antibiotics: None Indications: The patient has a history of left upper extremity middle finger painful catching and locking. Despite appropriate non operative management including flexor tendon sheath corticosteroid injections they continue to have symptoms. Operat maikel intervention was recommended. The risks, benefits alternatives and expected outcomes were discussed in detail. These included but were not limited to: Infection, bleeding, injury to blood vessel or nerve, venous thromboembolism. All questions were answered to their satisfaction. The patient was placed supine on the operating room table. Local anesthesia was established with 0.5% Marcaine without epinephrine and 2% lidocaine with epinephrine. The hand was prepped and draped in usual sterile fashion. A transverse incision was made centered over the base of the middle finger in the distal palmar crease. Subcutaneous dissection was taken through the palmar fascia to the flexor tendons with the tenotomy scissors. The A1 renzo was released with the 15 blade and a tenotomy scissors. Active flexion and extension of the finger shows no catching or locking, no bowstringing of the flexor tendons. The wound was closed with interrupted nylon sutures. A dry dressing was applied the tourniquet was released. Sponge and needle counts were correct x 2. The patient tolerated the procedure well, there were no apparent complications. They were sent to same day surgery in satisfactory condition. Plan: Use of the hand as tolerates. Discontinue the intraoperative dressing on postoperative day 3 and may get the wound wet as tolerates. Follow up in the office in 2 weeks for a wound check and suture removal.
== END 2024-02-20 07:55 | disposition home or self-care (01) ==
PROVIDERS: PCP Family Medicine; Visit Provider Orthopaedic Surgery
PROC: (CPT 26055; principal; 2024-02-20 07:15)
DX: M65.332 Trigger finger, left middle finger (principal); M65.89 Other synovitis and tenosynovitis, multiple sites
CPT/HCPCS: 26055

== ENCOUNTER 2024-10-07 13:27 | Outpatient (CLI) | payer MEDICARE, BC, SELFPAY ==
--- NOTE | 2024-10-07 13:45 | CRLHL7_ITS ---
For Patients: As a result of the Century Cures Act, medical imaging exams and procedure reports are released immediately into your electronic medical record. You may view this report before your referring provider. If you have questions, please contact your health care provider. Indication: Altered mental status Technique: Multiplanar, multisequence MRI of the brain obtained without contrast. Comparison: None. Findings: The ventricles and cortical sulci are diffusely prominent, compatible with generalized cerebral volume loss. No midline shift or mass effect. No acute intracranial hemorrhage or abnormal extra-axial fluid collection. No evidence of acute/subacute ischemia. Scattered T2/FLAIR hyperintense foci are noted throughout the supratentorial white matter and [place] typical of chronic microangiopathy. Chronic lacunar infarct is noted at the right posterior basal ganglia. Incidental partially empty sella configuration. Grossly preserved major intracranial arterial flow voids. Normal bone marrow signal. No evidence of obstructive paranasal sinus disease or mastoid effusion. Bilateral lens implants. Impression: 1. No evidence of acute intracranial abnormality. 2. Mild-moderate generalized cerebral volume loss and mild chronic microangiopathy changes, with a chronic lacunar infarct at the right posterior basal ganglia. Dictated by Dixie Cristina MD @ 10/07/2024 2:59:30 PM (Electronically Signed)
== END 2024-10-07 13:28 | disposition home or self-care (01) ==
LOC: MRI 13:28
PROVIDERS: PCP Family Medicine; Visit Provider Family Medicine
DX: R41.82 Altered mental status, unspecified (principal); I67.82 Cerebral ischemia
CPT/HCPCS: 70551

== ENCOUNTER 2025-01-27 14:08 | Outpatient (CLI) | payer MEDICARE, BC, SELFPAY | END 2025-01-27 14:09 | disposition home or self-care (01) | LOC: LAB 14:10 | PROVIDERS: PCP Family Medicine; Visit Provider Physician Assistant | DX: M25.461 Effusion, right knee (principal); Z96.651 Presence of right artificial knee joint | CPT/HCPCS: 36415; 83518; 87070; 87075; 87205 ==

== ENCOUNTER 2025-01-27 14:08 | Outpatient (CLI) | payer MEDICARE, BC, SELFPAY ==
[2025-01-27 16:53] LABS: BF Clarity* Slightly Cloudy; BF Color Xanthochromic; BF Total Volume* 10; Mononuclear WBC Body Fluid* 11 %; Polynuclear WBC Body Fluid* 89 %; RBC, Body Fluid* 21000 Cells/uL; WBC, Body Fluid* 19580 Cells/uL
== END 2025-01-27 14:09 | disposition home or self-care (01) ==
PROVIDERS: PCP Family Medicine; Visit Provider Physician Assistant
DX: M25.561 Pain in right knee (principal); M25.461 Effusion, right knee; B99.9 Unspecified infectious disease; S80.01XA Contusion of right knee, initial encounter; Z96.651 Presence of right artificial knee joint
CPT/HCPCS: 87070; 87075; 87205; 89051; 89060

== ENCOUNTER 2025-01-29 10:02 | Outpatient (CLI) | payer MEDICARE, BC, SELFPAY ==
[2025-01-29 10:52] LABS: Basophils Absolute Auto 0.02 K/uL (0.00-0.30); Basophils Percent Auto 0.2 % (0.0-3.0); Eosinophils Absolute Auto 0.04 K/uL (0.00-0.50); Eosinophils Percent Auto 0.4 % (0.0-7.0); Hematocrit 41.2 % (37.0-53.0); Immature Granulocytes Abs Auto 0.01 K/uL (0.00-0.30); Immature Granulocytes Pct Auto 0.1 %; Lymphocytes Percent Auto 8.9 % (20-44); Mean Corpuscular HGB Conc 34 gm/dL (32-36); Mean Corpuscular Hemoglobin 32 pg (26-34); Mean Corpuscular Volume 94 fL (80-100); Monocytes Percent Auto 8.8 % (0.0-11.0); Neutrophils Percent Auto 81.6 % (42.0-72.0); Platelet Count* 211 K/uL (140-440); RDW Coefficient of Variation % 12.7 % (11.5-15.5); White Blood Count* 9.84 K/uL (4.50-11.00)
[2025-01-29 10:56] LABS: Slide Review Reflex No
[2025-01-29 11:33] LABS: Erythrocyte SedimentationRate* 59 mm/hr (2-15)
[2025-01-29 11:48] LABS: C Reactive Protein* 14.2 mg/dL (0.5-1.0)
[2025-01-30 08:26] LABS: Mononuclear WBC Body Fluid* 27 %; Polynuclear WBC Body Fluid* 73 %; RBC, Body Fluid* 18000 Cells/uL; WBC, Body Fluid* 4384 Cells/uL
[2025-01-30 08:27] LABS: BF Total Volume* 15
[2025-01-30 08:29] LABS: BF Clarity* Slightly Cloudy; BF Color Blood Tinged
== END 2025-01-29 10:03 | disposition home or self-care (01) ==
PROVIDERS: PCP Family Medicine; Visit Provider Physician Assistant
DX: Z96.651 Presence of right artificial knee joint (principal); B99.9 Unspecified infectious disease; M25.461 Effusion, right knee
CPT/HCPCS: 36415; 85025; 85651; 86140; 87040; 87070; 87075; 87205; 89051; 89060